=== PATIENT | female | born 1995 | race Caucasian/White ===

== ENCOUNTER 2019-06-01 09:11 | Emergency (ER) | payer OTHER ==
[2019-06-01] MEDS ORDERED: Ibuprofen 400 MG TAB ONE (09:35)
[2019-06-01] MEDS ORDERED: Acetaminophen 500 MG TAB ONE (09:39)
== END 2019-06-01 09:45 | disposition home or self-care (01) ==
LOC: MADERS 09:11
DX: J11.1 Influenza due to unidentified influenza virus with other respiratory manifestations (principal); G43.909 Migraine, unspecified, not intractable, without status migrainosus; F41.9 Anxiety disorder, unspecified
CPT/HCPCS: 99283

== ENCOUNTER 2019-07-01 18:40 | Emergency (ER) | payer OTHER, SELFPAY ==
[2019-07-01] MEDS ORDERED: Acetaminophen 500 MG TAB ONE (19:01)
--- NOTE | 2019-07-01 19:18 | RAD ---
EXAM: Chest PA and lateral: HISTORY: Fall. Pain. COMPARISON: 02/08/2010 FINDINGS: Heart: Normal cardiac silhouette Aorta: Unremarkable Pulmonary vessels: Normal Costophrenic angles: Costophrenic angles are clear. Lungs: No consolidation or masses. Pneumothorax: No pneumothorax Osseous structures: No osseous abnormalities IMPRESSION: No acute cardiopulmonary process.
--- NOTE | 2019-07-01 19:35 | RAD ---
THREE VIEWS OF THE LEFT SHOULDER: 07/01/19 INDICATION: Left shoulder pain after fall. IMPRESSION: No acute fracture or subluxation is evident. The visualized left lung is clear. POS: [facility]
== END 2019-07-01 19:46 | disposition home or self-care (01) ==
LOC: MADERS 18:40
DX: S20.222A Contusion of left back wall of thorax, initial encounter (principal); G43.909 Migraine, unspecified, not intractable, without status migrainosus; F41.9 Anxiety disorder, unspecified; W18.09XA Striking against other object with subsequent fall, initial encounter
CPT/HCPCS: 71046